=== PATIENT | female | born 1980 | race Caucasian/White ===

== ENCOUNTER 2019-10-09 20:43 | Emergency (ER) | payer SELFPAY ==
[2019-10-09 21:13] VITALS: BP 115/79; PULSE 90; RESP 14; TEMP 36.8; O2SAT 99; BMI 41.5
[2019-10-09 21:54] LABS: HCG Qualitative Urine. Negative (Negative)
--- NOTE | 2019-10-09 21:54 | W.ED.ABDPA2 ---
HPI - Abdominal Pain General: Chief Complaint: Abdominal Pain Stated Complaint: FLANK PAIN Time Seen by Provider: 10/09/19 21:40 History of Present Illness: HPI narrative: Patient is a 39-year-old female who comes to the ED with right flank pain. Patient has a past medical history of multiple kidney stones on the right side. Patient says symptoms started today. She says that pain feels very similar to past kidney stones. She rates her pain a 9 out of 10 when she first arrived to the ED but now she says it is currently about a 6 out of 10.. She is also had a little bit of nausea due to the pain. She took tramadol at home and a Zofran and approximately 7 PM tonight. She endorses some burning sensation when she urinates today. Denies any fever, chills, abdominal pain, diarrhea, constipation, blood in stool, hematuria. Associated Symptoms: Reports dysuria (burning); Denies chills, constipation, diarrhea, fever(s), hematochezia, hematuria, nausea and vomiting Review of Systems Const: Denies: fever(s), chills or fatigue Eyes: Denies: change in vision or eye discomfort ENMT: Denies: throat pain, odynophagia, nasal discharge or nasal congestion Card: Denies: chest pain, palpitations, edema, swelling of feet/ankles, dyspnea on exertion or orthopnea Resp: Denies: dyspnea, productive cough or non-productive cough GI: Denies: abdominal pain, nausea, vomiting, diarrhea, constipation or hematochezia : Reports: flank pain (right flank) and dysuria (burning); Denies: hematuria Musc: Denies: neck pain, back pain or extremity swelling Skin/Breast: Denies: rash or new lesions Neuro: Denies: headache(s), numbness in extremities or weakness in extremities Physical Exam Const: COMMON NORMALS: no acute distress, patient oriented x3 and alert GENERAL APPEARANCE: cooperative and comfortable HENMT: COMMON NORMALS: normocephalic HEAD & SCALP: normocephalic MOUTH: Normal oral and palatal mucosa present THROAT: posterior oropharynx normal and uvula midline Eye: COMMON NORMALS: Equal, round and reactive pupils present PUPIL: Yes Equal, round and reactive pupils present Neck/C-Spine: COMMON NORMALS: supple GENERAL: Yes normal visual inspection Resp: COMMON NORMALS: normal respiratory effort, No retractions, No use of accessory muscles and clear to auscultation bilaterally AUSCULTATION: clear to auscultation bilaterally Cardio: COMMON NORMALS: regular rate, regular rhythm, S1 normal heart sound present, S2 normal heart sound present, No gallops present (Cardio), No clicks present (Cardio), No murmurs present (Cardio) and Peripheral pulses 2+ throughout RATE: regular rate RHYTHM: regular rhythm HEART SOUNDS: S1 normal heart sound present and S2 normal heart sound present PERIPHERAL PULSES: Peripheral pulses 2+ throughout GI: COMMON NORMALS: Normal to inspection, nondistended, normoactive bowel sounds present, Soft to palpation, non-tender and no masses PALPATION: Yes Soft to palpation : BLADDER/KIDNEY EXAM: Yes CVA tenderness Back/Pelvis: GENERAL BACK: Yes CVA tenderness CVA tenderness: right Extremity: COMMON NORMALS: normal to inspection and no pedal edema Neuro: COMMON NORMALS: patient oriented x3 SENSORIUM/ORIENTATION: Yes alert GAIT: Yes Normal gait present Skin: COMMON NORMALS: no rashes or lesions noted GENERAL SKIN EXAM: no rashes or lesions noted and dry skin Course Vital Signs: Vital signs: Vital Signs Temperature 98.2 F 10/09/19 21:13 Pulse Rate 68 10/10/19 01:50 Respiratory Rate 16 10/10/19 01:50 Blood Pressure 110/68 10/10/19 01:50 Pulse Oximetry 98 10/10/19 01:50 MDM - Abdominal Pain MDM Narrative: Medical decision making narrative: Patient is a 39-year-old female comes the ED with right flank pain. She has a past medical history of kidney stones. CT kidney stone performed that showed a obstructing stone measuring 4 x 6 mm at the UPJ. I placed an order with case management to refer patient to urologist. Patient was follow-up with medical provider as directed. Take medications as prescribed. Return to the ER or your medical provider if condition worsens. Please read and understand discharge instructions. If any questions, please ask. Told to take her previously prescribed tamsulosin and tramadol for pain. Strain urine to catch stone. I told patient to call Dr. Hernandez's office tomorrow morning to try to set up an appointment or she can return to ED if symptoms worsen. Patient understood and agreed with plan. Lab Data: Attestation: I reviewed the patient's lab results. Labs: Lab Results 10/09/19 10/09/19 10/09/19 Range/Units 21:41 21:41 23:00 WBC 19.2 H (4.0-10.0) 10^3/ uL RBC 4.77 (4.1-5.3) 10^6/u L Hgb 14.4 (11.5-15.3) g/dL Hct 46.2 (37.0-47.0) % MCV 96.9 (81-99) fL MCH 30.2 (28.0-34.0) pg MCHC 31.2 (30.0-36.0) g/dL RDW 12.6 (12.1-15.1) % Plt Count 359 (130-400) 10^3/c mm MPV 9.7 (7.4-10.4) fL Neut % (Auto) 89.4 % Lymph % (Auto) 4.4 % Weakley % (Auto) 5.3 % Eos % (Auto) 0.2 % Baso % (Auto) 0.3 % Neut # (Auto) 17.22 H (1.8-7.7) 10^3/u L Lymph # (Auto) 0.8 (0.8-4.8) 10^3/u L Weakley # (Auto) 1.0 H (0.2-0.9) 10^3/u L Eos # (Auto) 0.0 (0.0-0.8) 10^3/u L Baso # (Auto) 0.1 (0.0-0.1) 10^3/u L Nucleated RBC % (a uto) 0 % Nucleated RBCs # 0.0 /100WBC Sodium (136-145) mmol/L Potassium (3.5-5.1) mmol/L Chloride (98-107) mmol/L Carbon Dioxide (22-29) mmol/L Anion Gap (5-19) BUN (6-20) mg/dL Creatinine (0.5-0.9) mg/dL GFR Calculation (90-130) mL/min Glucose (65-115) mg/dL Calculated Osmolal ity (285-295) mOsm/k g Calcium (8.5-10.5) mg/dL Total Bilirubin (0.15-1.2) mg/dL AST (0-32) U/L ALT (0-33) U/L Alkaline Phosphata se (35-105) IU/L Total Protein (6.6-8.7) g/dL Albumin (3.5-5.2) g/dL Globulin (1.3-4.6) g/dL HCG, Qual Negative (Negative) Urine Color Yellow (Yellow) Urine Appearance Sl hazy (CLEAR) Urine pH 5 (5-7) Ur Specific Gravit y 1.030 (1.005-1.030) Urine Protein Neg (Negative) Urine Glucose (UA) Norm (Normal) Urine Ketones 1+ H (Negative) Urine Blood 2+ H (Negative) Urine Nitrate Negative (Negative) Urine Bilirubin Neg (NEGATIVE) Urine Urobilinogen Norm (Negative) mg/dL Ur Leukocyte Xiomara ase Negative (Negative) Urine RBC 0-4 H (0-2) /hpf Urine WBC 15-25 H (0-5) /hpf Ur Squamous Epith Cells 5-10 H (0-5) Amorphous Sediment Not Reportable Urine Bacteria 1+ H (NONE) 10/08/ Range/Units 23:00 WBC (4.0-10.0) 10^3/ uL RBC (4.1-5.3) 10^6/u L Hgb (11.5-15.3) g/dL Hct (37.0-47.0) % MCV (81-99) fL MCH (28.0-34.0) pg MCHC (30.0-36.0) g/dL RDW (12.1-15.1) % Plt Count (130-400) 10^3/c mm MPV (7.4-10.4) fL Neut % (Auto) % Lymph % (Auto) % Weakley % (Auto) % Eos % (Auto) % Baso % (Auto) % Neut # (Auto) (1.8-7.7) 10^3/u L Lymph # (Auto) (0.8-4.8) 10^3/u L Weakley # (Auto) (0.2-0.9) 10^3/u L Eos # (Auto) (0.0-0.8) 10^3/u L Baso # (Auto) (0.0-0.1) 10^3/u L Nucleated RBC % (a uto) % Nucleated RBCs # /100WBC Sodium 138 (136-145) mmol/L Potassium 4.3 (3.5-5.1) mmol/L Chloride 103 (98-107) mmol/L Carbon Dioxide 22 (22-29) mmol/L Anion Gap 17.3 (5-19) BUN 9 (6-20) mg/dL Creatinine 0.7 (0.5-0.9) mg/dL GFR Calculation 93.6 (90-130) mL/min Glucose 138 H (65-115) mg/dL Calculated Osmolal ity 284 L (285-295) mOsm/k g Calcium 9.1 (8.5-10.5) mg/dL Total Bilirubin 0.5 (0.15-1.2) mg/dL AST 22 (0-32) U/L ALT 19 (0-33) U/L Alkaline Phosphata se 140 H (35-105) IU/L Total Protein 7.3 (6.6-8.7) g/dL Albumin 4.3 (3.5-5.2) g/dL Globulin 3.0 (1.3-4.6) g/dL HCG, Qual (Negative) Urine Color (Yellow) Urine Appearance (CLEAR) Urine pH (5-7) Ur Specific Gravit y (1.005-1.030) Urine Protein (Negative) Urine Glucose (UA) (Normal) Urine Ketones (Negative) Urine Blood (Negative) Urine Nitrate (Negative) Urine Bilirubin (NEGATIVE) Urine Urobilinogen (Negative) mg/dL Ur Leukocyte Xiomara ase (Negative) Urine RBC (0-2) /hpf Urine WBC (0-5) /hpf Ur Squamous Epith Cells (0-5) Amorphous Sediment Urine Bacteria (NONE) Imaging Data ^: Other CT: Attestation: I personally reviewed and interpreted this imaging study as follows: Radiologist's impression: [address] [address] [address] Scan Report Signed Patient: Bhargavi Smith Unit #: [id number] : 1980 Age/Sex: 39 / F ADM Date: 10/09/19 Loc: ER Room/Bed: Attending Dr: Ordering Provider/Ordering MD: Arturo Felton Date of Service: 10/09/19 Procedure(s): CT kidney stone 28879 Accession Number(s): [id number] Report Number: [id number] PROCEDURE INFORMATION: Exam: CT Abdomen And Pelvis Without Contrast Exam date and time: 10/09/2019 11:04 PM Age: 39 years old Clinical indication: Abdominal pain; Flank; Right; Prior surgery; Surgery type: Litho, appy, x 2; Additional info: Right flank pain TECHNIQUE: Imaging protocol: Computed tomography of the abdomen and pelvis without contrast. Radiation optimization: All CT scans at this facility use at least one of these dose optimization techniques: automated exposure control; mA and/or kV adjustment per patient size (includes targeted exams where dose is matched to clinical indication); or iterative reconstruction. COMPARISON: No relevant prior studies available. RADIATION DOSE METRICS: Total DLP (mGy-cm): 1977. FINDINGS: Lungs: The lung bases are clear. Liver: Unremarkable. Gallbladder and bile ducts: No definite gallbladder abnormality by CT. No biliary tree dilation. Pancreas: Unremarkable. Spleen: Unremarkable. Adrenals: Unremarkable. Kidneys and ureters: Right lower pole intrarenal calculus. Mild right perinephric stranding/fluid. Moderate right hydronephrosis. There is a 4 x 6 mm proximal right ureteral calculus, at the UPJ. The left kidney appears essentially unremarkable. Stomach and bowel: There are no CT findings to strongly suggest diverticulitis. Appendix: The appendix is not identified with certainty, however no pericecal inflammatory changes are seen. Intraperitoneal space: No free air, ascites, or bowel distention. Vasculature: No evidence for abdominal aortic aneurysm. Lymph nodes: No retroperitoneal adenopathy. Bladder: Possibly some mild diffuse urinary bladder wall thickening. While nonspecific, this could indicate evidence for cystitis. Please correlate clinically. Reproductive: Suspect possible small uterine fibroids. The left ovary contains a 19 mm dominant follicle versus small cyst. Significance uncertain/unlikely due to small size. No cul-de-sac fluid. Bones/joints: Severe degenerative disc space narrowing at L5-S1. Soft tissues: No significant acute finding. CT/CT kidney stone 83914 IMPRESSION: 1. 4 x 6 mm proximal right ureteral calculus, see above details. 2. Moderate right hydronephrosis. 3. Possible mild urinary bladder wall thickening, see above. 4. The left ovary contains a 19 mm dominant follicle versus small cyst. Significance uncertain/unlikely due to small size. No cul-de-sac fluid. 5. Other findings discussed above. Radiation Dose CTDIVOL = (mGy): DLP = 1978.04 (mGy-cm) Dictated By: Gordy Gongora MD Signed By: Gordy Gongora MD Signed Date/Time: 10/10/1917 DD/ Discharge Plan Discharge Patient Disposition: Home Clinical Impression: Kidney stone on right side Condition: Stable Prescriptions: New Zofran 4 mg tablet 4 mg PO Q8H Qty: 20 RF: 0 Discharge Orders: Discharge Order (Routine); Ordered 10/10/19 Ordered By: Arturo Felton Discharge Diet: Regular Discharge Activity: Increase activity as tolerated Patient Instructions: Kidney Stones (ED) Activity Restrictions/Additional Instructions: Follow-up with medical provider as directed. Strain urine to catch stone and bring to urologist for further testing. You can call Dr. Hernandez's office tomorrow morning if symptoms worsen. His office phone number is [phone]. Take your home medications of tamsulosin and tramadol. If you do not call Dr. Hernandez's office tomorrow someone in case management should be contacting you in the next couple days to set up an appointment with Dr. Hernandez. Return to the ER or your medical provider if condition worsens. Please read and understand discharge instructions. If any questions, please ask. Discharge Date/Time: 10/10/19 01:53 Coding Level of Care Code ED Mechanical System Technician for [facility] Fwd Exam Comprehensive
[2019-10-09 22:02] LABS: Add Urine Microscopic? YES; Bilirubin Urine Neg (NEGATIVE); Blood Urine 2+ (Negative); Glucose Urine UA Norm (Normal); Ketones Urine 1+ (Negative); Leukocyte Esterase Urine Negative (Negative); Nitrate Urine Negative (Negative); Protein Urine Neg (Negative); Urine Appearance SL Hazy (CLEAR); Urine Color Yellow (Yellow); Urobilinogen Urine Norm (Negative); pH Urine 5 (5-7)
[2019-10-09 22:03] LABS: Bacteria Urine 1+; RBC Urine 0-4 /hpf (0-2); WBC Urine 15-25 /hpf (0-5)
--- NOTE | 2019-10-09 22:05 | CTR_ITS ---
PROCEDURE INFORMATION: Exam: CT Abdomen And Pelvis Without Contrast Exam date and time: 10/09/2019 11:04 PM Age: 39 years old Clinical indication: Abdominal pain; Flank; Right; Prior surgery; Surgery type: Litho, appy, x 2; Additional info: Right flank pain TECHNIQUE: Imaging protocol: Computed tomography of the abdomen and pelvis without contrast. Radiation optimization: All CT scans at this facility use at least one of these dose optimization techniques: automated exposure control; mA and/or kV adjustment per patient size (includes targeted exams where dose is matched to clinical indication); or iterative reconstruction. COMPARISON: No relevant prior studies available. RADIATION DOSE METRICS: Total DLP (mGy-cm): 1977. FINDINGS: Lungs: The lung bases are clear. Liver: Unremarkable. Gallbladder and bile ducts: No definite gallbladder abnormality by CT. No biliary tree dilation. Pancreas: Unremarkable. Spleen: Unremarkable. Adrenals: Unremarkable. Kidneys and ureters: Right lower pole intrarenal calculus. Mild right perinephric stranding/fluid. Moderate right hydronephrosis. There is a 4 x 6 mm proximal right ureteral calculus, at the UPJ. The left kidney appears essentially unremarkable. Stomach and bowel: There are no CT findings to strongly suggest diverticulitis. Appendix: The appendix is not identified with certainty, however no pericecal inflammatory changes are seen. Intraperitoneal space: No free air, ascites, or bowel distention. Vasculature: No evidence for abdominal aortic aneurysm. Lymph nodes: No retroperitoneal adenopathy. Bladder: Possibly some mild diffuse urinary bladder wall thickening. While nonspecific, this could indicate evidence for cystitis. Please correlate clinically. Reproductive: Suspect possible small uterine fibroids. The left ovary contains a 19 mm dominant follicle versus small cyst. Significance uncertain/unlikely due to small size. No cul-de-sac fluid. Bones/joints: Severe degenerative disc space narrowing at L5-S1. Soft tissues: No significant acute finding. CT/CT kidney stone 83032 IMPRESSION: 1. 4 x 6 mm proximal right ureteral calculus, see above details. 2. Moderate right hydronephrosis. 3. Possible mild urinary bladder wall thickening, see above. 4. The left ovary contains a 19 mm dominant follicle versus small cyst. Significance uncertain/unlikely due to small size. No cul-de-sac fluid. 5. Other findings discussed above. Radiation Dose CTDIVOL = (mGy): DLP = 1978.04 (mGy-cm)
[2019-10-09] MEDS: sodium chloride 0.9% 1,000 ML 999 ML IV (23:00)
[2019-10-09] MEDS: ondansetron 2 mg/ML SDV 2 mL 4 MG IVP (23:05)
[2019-10-09 23:10] VITALS: RESP 18; O2SAT 97
[2019-10-09] MEDS: morphine 4 mg/mL SDV 1 mL IVP (23:10)
[2019-10-09] MEDS: diphenhydrAMINE 50 mg/mL SDV 1mL IVP (23:25)
--- NOTE | 2019-10-09 23:28 | PC.NURSE ---
after med adm, pt states hand feels itchy . STRUCTURAL DRAFTSMAN notified. vo obtained for debbiel
[2019-10-09 23:44] LABS: Basophils # 0.1 10^3/uL (0.0-0.1); Basophils % 0.3 %; Eosinophils % 0.2 %; Hematocrit 46.2 % (37.0-47.0); Hemoglobin 14.4 g/dL (11.5-15.3); Lymphocytes # 0.8 10^3/uL (0.8-4.8); Lymphocytes % 4.4 %; Mean Corpuscular HGB Conc 31.2 g/dL (30.0-36.0); Mean Corpuscular Hemoglobin 30.2 pg (28.0-34.0); Mean Corpuscular Volume 96.9 fL (81-99); Mean Platelet Volume 9.7 fL (7.4-10.4); Monocytes % 5.3 %; Neutrophils # 17.22 10^3/uL (1.8-7.7); Neutrophils % 89.4 %; Nucleated Red Blood Cells % 0 %; Platelet Count 359 10^3/cmm (130-400); Red Blood Count 4.77 10^6/uL (4.1-5.3); Red Cell Distribution Width 12.6 % (12.1-15.1); White Blood Count 19.2 10^3/uL (4.0-10.0)
[2019-10-09 23:57] LABS: Alanine Aminotransferase 19 U/L (0-33); Albumin Level 4.3 g/dL (3.5-5.2); Alkaline Phosphatase 140 IU/L (35-105); Anion Gap 17.3 (5-19); Aspartate Amino Transferase 22 U/L (0-32); Blood Urea Nitrogen 9 mg/dL (6-20); Calcium 9.1 mg/dL (8.5-10.5); Carbon Dioxide 22 mmol/L (22-29); Chloride 103 mmol/L (98-107); Creatinine Clr Calc Pharmacy 136.8608; Glomerular Filtration Rate 93.6 mL/min (90-130); Glucose 138 mg/dL (65-115); Osmolality Calculated 284 mOsm/kg (285-295); Potassium 4.3 mmol/L (3.5-5.1); Sodium 138 mmol/L (136-145); Total Bilirubin 0.5 mg/dL (0.15-1.2); Total Protein 7.3 g/dL (6.6-8.7)
[2019-10-10] MEDS: HYDROcodone-acetaminophen 7.5-325 mg Tablet 1 TAB PO (01:35)
[2019-10-10] MEDS: ketorolac 30 mg/mL INJ IVP (01:49)
[2019-10-10] MEDS: tamsulosin 0.4 mg Capsule PO (01:49)
[2019-10-10 01:50] VITALS: BP 110/68; PULSE 68; RESP 16; O2SAT 98
--- NOTE | 2019-10-10 09:18 | DCPLANNER ---
entry level manager had message to scheduled a follow up appointment for patient with Dr. Hernandez. entry level manager called the office of Dr. Hernandez, spoke with Lanette. entry level manager gave the clinic patients information, was told that it would be printed and reviewed. Clinic will call patient with appointment information.
--- NOTE | 2019-10-11 15:39 | DCPLANNER ---
Lanette from Dr. Cummings office called bilingual case manager stating that the clinic called [phone] and [phone], both numbers were disconnected. Could not reach patient, bilingual case manager tried the numbers and was unable to reach patient.
== END 2019-10-10 01:53 | disposition home or self-care (01) ==
PROVIDERS: Emergency Medicine; Emergency Provider Physician Assistant
DX: N20.0 Calculus of kidney (principal)
CPT/HCPCS: 12345; 74176; 80053; 81001; 81025; 85025; 96361; 96374; 96375; 99282; 99283; J1200; J1885; J2270; J2405; J7030